=== PATIENT | female | born 1945 | race Caucasian/White ===

== ENCOUNTER 2017-05-07 13:09 | Inpatient (IN) | payer MEDICARE ==
[2017-05-07] MEDS ORDERED: Ondansetron HCl/PF 4 MG/2 ML Vial ONE ×3 (14:14→17:07)
[2017-05-07 14:50] LABS: Hematocrit 43.3 % (36.0-47.0); Mean Platelet Volume 6.9 fL (7.4-10.4); Red Blood Cell (RBC) Count 4.24 mill/uL (4.20-5.40)
[2017-05-07 14:55] LABS: Prothrombin Time 13.2 SEC (12.0-14.7)
[2017-05-07 14:56] LABS: PTT 22.3 SEC (22.9-36.1)
[2017-05-07 15:04] LABS: Lactic Acid - Sepsis 2.3 mmol/L (0.5-2.2)
[2017-05-07 15:12] LABS: ALT (SGPT) 14 U/L (8-55); AST (SGOT) 22 U/L (5-34); Alkaline Phosphatase 84 U/L (40-150); Anion Gap 17 mmol/L (10-20); BUN (Urea Nitrogen) 14 mg/dL (9.8-20.1); Bilirubin, Total 0.5 mg/dL (0.2-1.2); CK (CPK) 65 U/L (29-168); Calc. Creatinine Clearance 0 mL/min (70-130); Calcium 9.4 mg/dL (7.8-10.44); Carbon Dioxide 22 mmol/L (23-31); Chloride 102 mmol/L (98-107); Estimated GFR-MDRD 73; Globulin 3.6 g/dL (2.4-3.5); Lipase 17 U/L (8-78); Protein, Total 7.5 g/dL (6.0-8.3)
[2017-05-07 15:14] LABS: Troponin I 0.037 ng/mL (< 0.028)
--- NOTE | 2017-05-07 15:17 | CT ---
CT ABDOMEN NONCONTRAST CT PELVIS NONCONTRAST: (urolithiasis protocol) DATE: 05/07/17. HISTORY: A 72-year-old female with nausea, emesis, anorexia, and intermittent generalized abdominal pain. COMPARISON: Contrast-enhanced CT of 11/04/15. TECHNIQUE: IV injection of iodinated contrast media: none. Oral contrast media: none. FINDINGS: Other than for urolithiasis, the lack of IV and oral contrast limits the evaluation. Since the previous CT, there is a new generator implanted in the subcutaneous fat of the left flank, with electrical leads entering the posterior aspect of the spinal canal at the thoracolumbar junction , and ascending the thoracic spine, with distal portions outside of the field of view. There are fib rotic changes at the bilateral lung bases, including mild to moderate honeycombing, in addition to ar eas of hyperlucency. Approximately 20% of the stomach has herniated into the mediastinum. There are no renal, ureteral, or bladder calculi. No bladder wall thickening. Low bladder base within the pe lvic cavity (pelvic relaxation). Moderate to large volume of stool throughout the entire colon. No signs of acute colonic diverticulitis. No ascites or pneumoperitoneum identified. No hydronephrosis . Atherosclerotic calcification without aneurysm of abdominal aorta and splenic artery. Cholecystec billy clips. Mild dilation of the intrahepatic biliary tree, probably on a reservoir basis due to the status post cholecystectomy. Within the limitations of a noncontrast scan, no gross, obvious abnorm ality identified involving the liver, pancreas, adrenals, or spleen. Dextroscoliosis, with apex of c urvature at L1-2. Multilevel degenerative disk disease, worst at L4-5 and T12-L1. IMPRESSION: 1. Constipation, with stool mostly in the left hemicolon. 2. Status post cholecystectomy and hysterectomy. 3. Moderate-sized sliding hiatal hernia. 4. Dorsal column spinal cord stimulator. 5. No urolithiasis or obstructive uropathy. 6. No acute findings. 7. Chronic bibasilar pulmonary changes: emphysema and/or pulmonary fibrosis. REYES Gore POS: [facility]
[2017-05-07 15:22] LABS: Band 3 % (5-11); Macrocytosis SLIGHT = 6-15 cells (100X) (0-5/hpf); Neutrophil 73 % (42-75); Polychromasia SLIGHT = 2-3 cells (100X) (0-2/hpf)
--- NOTE | 2017-05-07 15:38 | RAD ---
PORTABLE AP CHEST XRAY: DATE: 05/07/17. HISTORY: Nausea and vomiting and weakness. Reduced p.o. intake. COMPARISON: 11/04/15. FINDINGS: Dorsal column stimulator leads now overlie the lower thoracic spine. Cardiac silhouette is at the up per limits of normal. There are increased interstitial markings seen throughout the lungs bilaterall y likely related to chronic interstitial fibrotic lung changes. No consolidation or pleural fluid is present. Osteopenia is present. Vascular calcification is seen in the thoracic aorta. IMPRESSION: 1. Chronic interstitial fibrotic lung changes without evidence of an acute cardiopulmonary process. 2. Osteopenia. POS: [facility]
[2017-05-07] MEDS ORDERED: Nitroglycerin 2% Ointment 1 INCH/1 GM Packet ONE (15:53)
[2017-05-07] MEDS ORDERED: fentaNYL 75 mcg/hour Patch TD SCH (17:15)
[2017-05-07 17:37] LABS: Amphetamine Not Detected (NotDetected); Methadone Not Detected (NotDetected); Methamphetamine Not Detected (NotDetected)
[2017-05-07] MEDS ORDERED: Sodium Chloride 0.9% 1,000 ML IV SCH (18:27)
[2017-05-07] MEDS ORDERED: Ondansetron HCl/PF 4 MG/2 ML Vial IVP PRN (18:27)
[2017-05-07] MEDS ORDERED: Ondansetron ODT 4 MG TAB SL PRN (18:27)
[2017-05-07 18:33] LABS: Troponin I 0.043 ng/mL (< 0.028)
[2017-05-07] MEDS: Dextrose 5% in Water 1,000 ML IV SCH (18:35)
[2017-05-07] MEDS: Promethazine HCl 12.5 MG in Sodium Chloride 0.9% 50 ML IVPB PRN (18:47)
[2017-05-07 20:00] LABS: Bilirubin Negative (Negative); Blood, Urine Negative (Negative); Glucose, Urine (Dipstick) Negative (Negative); Ketone, Urine Trace mg/dL (Negative); Nitrite Negative (Negative); Protein, Urine (Dipstick) 100 mg/dL (Neg-Trace); Urobilinogen 0.2 mg/dL (0.2-1.0)
[2017-05-07 20:01] LABS: Bacteria/HPF None Seen HPF (None Seen); Hyaline Casts/LPF 7-10 HYALINE CAST LPF (0-3 Hyaline); RBC/HPF 0-3 HPF (0-3); WBC/HPF 0-3 HPF (0-3)
[2017-05-07] MEDS: clonazePAM 0.5 MG TAB PO SCH (20:23)
[2017-05-07] MEDS: Pregabalin 75 MG CAP PO SCH (20:23)
[2017-05-07] MEDS: Pantoprazole 40 MG VIAL IVP SCH (20:25)
[2017-05-07 21:36] LABS: Troponin I 0.032 ng/mL (< 0.028)
--- NOTE | 2017-05-07 23:44 | HP ---
DATE OF ADMISSION: 05/07/2017 CHIEF COMPLAINT: Nausea and vomiting with some abdominal pain. HISTORY OF PRESENT ILLNESS: Apparently this is nothing new. It goes on for quite some time. We are talking about more than weeks when she has nausea and vomiting and stomach cramping approximately 2- 3 days out of 7 every week. Both daughters are in the room during my visit and both agreed that prob ably she takes too much medications on an empty stomach and this is causing the problem. She denied any fever or chills, but she feels quite warm all the time. She had a normal bowel movement. Her PC P is Dr. Darnell. She is FULL CODE. Her surrogate decision maker is Bony Mcpherson, one of her daught ers. PAST MEDICAL HISTORY: Positive for: 1. Fibromyalgia. 2. Bipolar disorder. 3. Chronic opiate use. 4. Chronic pain. 5. Dyslipidemia. 6. Gastroesophageal reflux disease. 7. Chronic respiratory failure with hypoxia. 8. Interstitial lung disease. 9. Moderate protein calorie malnutrition. PAST SURGICAL HISTORY: 1. Cholecystectomy. 2. Appendectomy. 3. Hysterectomy. 4. Ventral hernia repair. 5. Left middle finger surgery x3. 6. Bronchoscopy and PICC line placement in the past. ALLERGIES: VANCOMYCIN. SOCIAL HISTORY: She used to smoke. She quit 5 years ago. She uses vapor. Now, she denies any alco hol or illicit drug use. MEDICATIONS: We are going to obtain the full list of her medications and reconcile them. REVIEW OF SYSTEMS: Cardiovascular: Denies any chest pain. No palpitations. Respiratory: Denies any chronic cough or shortness of breath. Gastrointestinal: Positive for nausea and vomiting and abdominal cramping, nor mal stools. Genitourinary: Denies any frequency. Musculoskeletal: Positive for joint changes of b oth hands and positive whole body pain all over quite often. PHYSICAL EXAMINATION: VITAL SIGNS: Her blood pressure is 165/95, pulse is 98, respiratory rate is 98. She is on room air. Her temperature is within normal limits. Her blood pressure at the time of arrival was up to 184/1 13. Her pain was rated at 6 on a scale from 1-10. GENERAL: She looks tired and emaciated. She looks like a chronic pain syndrome patient. She looks dehydrated. HEENT: Her head is atraumatic, normocephalic. Her pupils are responding to light properly. Conjunc tivae pinkish. Oral mucosa is somewhat dry. NECK: Supple, no JVD. Thyroid is not palpable. LUNGS: Clear. HEART: S1, S2 normal. No S3, no S4. ABDOMEN: Soft. It is mildly tender all over. No guarding, no masses. EXTREMITIES: No clubbing, cyanosis or edema. She has decent pulses on both tibialis posterior and d orsalis pedis arteries, similar bilaterally. NEUROLOGIC: She follows my commands. She does not have any motor or sensory deficits. Cranial nerv es are intact. LABORATORY AND X-RAY FINDINGS: Showed normal CBC except for MCV which is 102. Her chemistry showed sodium of 136, potassium 4.5, chloride 102, CO2 of 22, glucose 111. Lactic acid is 2.3, globulin is 3.6, troponin I is 0.037. BNP 728.8, lipase 17. Chest x-ray personally reviewed by me showed some c hronic interstitial fibrotic changes in lower parts of both lungs. A CT of the abdomen and pelvis wa s done and it was personally reviewed by me and it showed no acute findings, constipation, mostly in the left hemicolon and hiatal hernia. IMPRESSION: 1. Nausea and vomiting with abdominal cramps, which is a chronic problem up to the point that the gricelda navarro brought her in to be evaluated and unclear etiology. This could be related to her autoimmune di sease or simple as taking medications on an empty stomach. That is what she does. We will further i nvestigate the etiology of the problem. 2. Bipolar disorder. 3. Depression. 4. Anxiety. 5. Restless leg syndrome. 6. Rheumatoid arthritis. 7. Gout. 8. Osteoporosis. 9. Profuse sweating which is unclear etiology, maybe medications withdrawal since she has not been a ble to keep much down in the last couple of days. 10. History of peritonitis and bowel obstruction. 11. Chronic pain syndrome. 12. Polypharmacy, patient on multiple medications. PLAN: Full admission. Condition is fair. Activity: Bed rest and bathroom privileges. IV D5 water at 75 mL per hour. We will reconcile her medications. I will give her 1 patch of fentanyl 75 mcg r ight now since we do not know how old the patch is she has on her. I am going to check her CRP and I will continue her antiemetics. We will get Dr. Murguia for GI evaluation and I will keep her on proton pump inhibitor IV and Protonix 40 mg q.12 hours.
[2017-05-07] MEDS: Ondansetron HCl/PF 4 MG/2 ML Vial IVP PRN (23:49)
[2017-05-08] MEDS: hydrALAZINE 20 MG/ML VIAL SLOW IVP PRN ×2 (00:34→08:40)
[2017-05-08] MEDS: Promethazine HCl 12.5 MG in Sodium Chloride 0.9% 50 ML IVPB PRN (02:56)
[2017-05-08 06:04] LABS: #Basophils 0.1 thou/uL (0.0-0.2); #Eosinphils 0.1 thou/uL (0.0-0.7); #Monocytes 0.8 thou/uL (0.11-0.59); #Neutrophils 7.6 thou/uL (1.40-6.50); %Basophils 0.6 % (0.0-1.0); %Eosinophils 1.3 % (0.0-10.0); %Monocytes 7.6 % (0.0-10.0); Hematocrit 42.1 % (36.0-47.0); Mean Platelet Volume 6.9 fL (7.4-10.4); Red Blood Cell (RBC) Count 4.15 mill/uL (4.20-5.40); White Blood Cell (WBC) Count 10.7 thou/uL (4.8-10.8)
[2017-05-08 06:14] LABS: Anion Gap 14 mmol/L (10-20); BUN (Urea Nitrogen) 11 mg/dL (9.8-20.1); Calc. Creatinine Clearance 52 mL/min (70-130); Calcium 9.3 mg/dL (7.8-10.44); Carbon Dioxide 25 mmol/L (23-31); Chloride 98 mmol/L (98-107); Estimated GFR-MDRD 68
[2017-05-08] MEDS: Ondansetron HCl/PF 4 MG/2 ML Vial IVP PRN (06:16)
[2017-05-08] MEDS: Pregabalin 75 MG CAP PO SCH ×2 (08:39→20:32)
[2017-05-08] MEDS: Pantoprazole 40 MG VIAL IVP SCH ×2 (08:39→20:32)
[2017-05-08] MEDS: Citalopram 20 MG TAB PO SCH (08:39)
[2017-05-08] MEDS: clonazePAM 0.5 MG TAB PO SCH ×2 (08:40→20:32)
[2017-05-08] MEDS: Dextrose 5% in Water 1,000 ML IV SCH (08:41)
[2017-05-08] MEDS: Promethazine HCl 12.5 MG in Sodium Chloride 0.9% 100 ML IVPB PRN ×2 (11:18→20:48)
[2017-05-08] MEDS ORDERED: Lidocaine 2% Viscous Solution 20 ML, Aluminum & Magnesium Hydroxide 30 ML, Donnatal Eli... SSW SCH ×3 (12:30)
[2017-05-08] MEDS ORDERED: Lorazepam 2 MG/ML VIAL SLOW IVP SCH (12:45)
[2017-05-08] MEDS ORDERED: D5 0.9% NS w/ 20 mEq KCl 1,000 ML IV SCH (12:45)
[2017-05-08] MEDS ORDERED: hydrALAZINE 20 MG/ML VIAL SLOW IVP PRN (12:48)
--- NOTE | 2017-05-08 13:15 | PRG ---
DATE OF SERVICE: 05/08/2017 SUBJECTIVE: The patient was seen and examined at the bedside. She vomited this morning. She had so me rest last night, but she developed migraine headache this morning. Apparently, she has a history of migraines on and off, did not have any migraine for several weeks. OBJECTIVE: VITAL SIGNS: Blood pressure is 171/83, temperature is 98.4, pulse is 99, respiratory rate is 20, O2 saturation 98% on room air. She has a towel around her head and on her eyes, so this part is not exa mined since she is photophobic. LUNGS: Clear. HEART: S1, S2 normal, no S3, no S4. ABDOMEN: Soft and nontender. Bowel sounds are present. EXTREMITIES: No clubbing, cyanosis or edema. NEUROLOGIC: She is following my commands. She is alert and oriented x3. There is no any motor defi cits. LABORATORY DATA: White count of 7.7, hemoglobin 13.5, hematocrit 42.1, and platelet count is 289,000 . Sodium of 133, potassium 4.1, chloride 98, CO2 of 25, BUN 11, creatinine 0.82, glucose is 141, john cium 9.3. Lactic acid was down yesterday to 1.7. Two sets of the troponins came back at 0.043 and 0 .032 and C-reactive protein was 0.87. MICROBIOLOGY: None. IMAGES: None. IMPRESSION: 1. Intractable nausea and vomiting, most likely related to her medications she is taking. She is on multiple medications at home. She takes them on empty stomach, although other etiologies are not ru led out. Her automotive leasing sales representative, Dr. Murguia, is coming to see her and evaluate her for possible scopin g. She might have a gastrointestinal etiology as source of her nausea and vomiting. Apparently, she has those episodes lasting 2-3 days almost every week and she gets vomiting too along with her migra ine headaches. 2. Bipolar disorder. 3. Depression. 4. Migraine headaches. 5. Anxiety. 6. Restless leg syndrome. 7. Rheumatoid arthritis. 8. Gout. 9. Osteoporosis. 10. Profuse sweating, which has improved significantly since yesterday, most likely related to serot onin affect. 11. History of peritonitis and bowel obstruction. 12. Chronic pain syndrome. The patient has a generator, which is implanted in the subcutaneous fat of the left flank and according to the CT results, electrical leads entered the posterior aspect of t he spinal canal at the thoracolumbar junction and ascending the thoracic spine. PLAN: So, plan is to continue supportive care and give her one dose of Toradol 30 mg IV for the head ache. Continue IV fluids D5 half normal saline at 125 mL which is increased from 75 she was on befor e. Also, we are going to wait until Dr. Murguia sees her for GI evaluation for possible scoping. If sh yana starts vomiting more, we will have to put down the NG tube and slow suctioning her stomach contents . For now, we will continue the current regimen and will continue her PPI 40 mg q.12 h. and antiemet ics and benzodiazepines with one of her medication, which is citalopram whenever she can start taking them. At this point, I am going to start her on ice chips and advance the diet as tolerated.
[2017-05-08] MEDS: D5 0.9% NS w/ 20 mEq KCl 1,000 ML IV SCH (13:16)
--- NOTE | 2017-05-08 15:55 | CON ---
DATE OF CONSULTATION: 05/08/2017 HISTORY OF PRESENT ILLNESS: The patient is a 72-year-old female patient of Dr. Sam who presented to the hospital with persistent nausea and vomiting. Reviewing previous records by Dr. Regan, it looks like possibly the last time she was seen by Dr. Sam was 11/2014. At that time, liseth dejesus was a cyst on the pancreas, chronic diarrhea, nausea, vomiting, and weight loss. At that time, her weight had gone from 116-124. Previous EGD in 06/2011 showed normal exam. Colonoscopy in 06/26 12 showed a right-sided stricture that was nonobstructive. Gastric and small bowel biopsies were audrey en and were normal. Biopsies in 2006 of the stricture were unremarkable showing active colitis with extensive ulceration. The patient reports that she has nausea and vomiting only when she has a heada mague. However, this is not supported by family members. She denies any extensive weight loss. She r eports she does not have much of an appetite. She recently had a spinal cord stimulator placed and s he has been tapering off her oral medications as is successful in stopping the hydrocodone. She stil l is on a fentanyl patch. PAST MEDICAL HISTORY: Significant for fibromyalgia, bipolar disorder, chronic migraine headaches, ch ronic back pain normal with a spinal cord stimulator, hyperlipidemia, gastroesophageal reflux, and in terstitial lung disease. PAST SURGICAL HISTORY: Includes cholecystectomy, appendectomy, hysterectomy, ventral hernia repair, which was complicated and required multiple surgeries, left middle finger surgery, and bronchoscopy i n the past. ALLERGIES: VANCOMYCIN. SOCIAL HISTORY: She canales, but does not smoke. No alcohol. MEDICATIONS: Include fentanyl patch 75 mcg every 3 days, citalopram 40 mg p.o. daily, Ceftin 250 mg p.o. q.12 hours, Lipitor 20 mg p.o. daily, tizanidine 4 mg p.o. t.i.d. p.r.n., ropinirole 1 mg p.o. d aily, clonazepam 0.5 mg p.o. b.i.d., buspirone 7.5 mg p.o. b.i.d., Ventolin inhaler p.r.n., Effexor 2 25 mg p.o. daily, Phenergan 25 mg p.o. q.8 hours p.r.n., Lyrica 75 mg p.o. b.i.d., MiraLax 17 grams p .o. daily, DuoNeb p.r.n., Pepcid 20 mg p.o. q.12 hours p.r.n., Premarin 0.2 mg p.o. daily, Cymbalta 2 0 mg p.o. daily, and Celebrex 100 mg p.o. daily. FAMILY HISTORY: Negative for GI or liver disease. REVIEW OF SYSTEMS: CONSTITUTIONAL: No fever or chills. Positive for sweats. Negative for weight l oss. EYES: No blurred vision or double vision. ENT: No sore throat or earaches. CARDIOVASCULAR: No chest pain or palpitation. PULMONARY: No shortness of breath, cough or wheezing. GASTROINTESTI NAL: See above. : No hematuria or dysuria. MUSCULOSKELETAL: Positive for generalized weakness. SKIN: No rashes. NEUROLOGIC: No numbness or seizure activity. PHYSICAL EXAMINATION: GENERAL: Shows a thin female covering her eyes with a towel. VITAL SIGNS: Temperature 98.4, pulse 99, respiratory rate 20, blood pressure 171/83. HEENT: Unremarkable. NECK: Supple. CHEST: Clear. CARDIOVASCULAR: Regular rate and rhythm. ABDOMEN: Soft and nontender without organomegaly or masses. Bowel sounds are present and normoactiv e. RECTAL: Deferred. EXTREMITIES: Normal. NEUROLOGIC: Nonfocal. LABORATORY DATA AND IMAGING: Shows an admission hemoglobin 13.9, hematocrit 43.3. White blood cell count of 10.0, MCV is 102. PT is 13.2 with an INR of 1.0. Chemistry panel showed CO2 22, glucose 11 1, globulin 36, BMP at 728. Urinalysis is essentially normal. Toxicology is undetected. CT abdomen and pelvis shows constipation with stool mostly in the left hemicolon, status post cholecystectomy a nd hysterectomy, moderate sized hiatal hernia, distal column spinal cord stimulator and emphysematous changes. ASSESSMENT: 1. Persistent nausea and vomiting - this may be related to the patient's migraine headaches versus n arcotic use versus medications. 2. Chronic migraine headaches. 3. Chronic lower back pain on chronic narcotics. 4. History of right colon stricture. 5. Chronic obstructive pulmonary disease. RECOMMENDATIONS: EGD in a.m.
[2017-05-09] MEDS: D5 0.9% NS w/ 20 mEq KCl 1,000 ML IV SCH ×3 (02:56→21:44)
[2017-05-09] MEDS: Ondansetron HCl/PF 4 MG/2 ML Vial IVP PRN (04:20)
[2017-05-09] MEDS: Promethazine HCl 12.5 MG in Sodium Chloride 0.9% 100 ML IVPB PRN ×2 (06:42→21:51)
[2017-05-09 07:57] LABS: #Eosinphils 0.3 thou/uL (0.0-0.7); #Lymphocytes 2.2 thou/uL (1.20-3.40); #Monocytes 0.8 thou/uL (0.11-0.59); %Basophils 0.2 % (0.0-1.0); %Eosinophils 3.3 % (0.0-10.0); %Lymphocytes 26.8 % (21.0-51.0); %Monocytes 9.3 % (0.0-10.0); Hematocrit 37.1 % (36.0-47.0); Mean Platelet Volume 7.1 fL (7.4-10.4); Red Blood Cell (RBC) Count 3.59 mill/uL (4.20-5.40); White Blood Cell (WBC) Count 8.3 thou/uL (4.8-10.8)
[2017-05-09 08:23] LABS: ALT (SGPT) 11 U/L (8-55); AST (SGOT) 19 U/L (5-34); Alkaline Phosphatase 62 U/L (40-150); Anion Gap 13 mmol/L (10-20); BUN (Urea Nitrogen) 13 mg/dL (9.8-20.1); Bilirubin, Total 0.4 mg/dL (0.2-1.2); Calc. Creatinine Clearance 56 mL/min (70-130); Calcium 8.5 mg/dL (7.8-10.44); Carbon Dioxide 23 mmol/L (23-31); Chloride 107 mmol/L (98-107); Estimated GFR-MDRD 68; Globulin 2.7 g/dL (2.4-3.5)
--- NOTE | 2017-05-09 10:53 | OP ---
PREOPERATIVE DIAGNOSES: Persistent nausea and vomiting. DESCRIPTION OF PROCEDURE: After informed consent was obtained, the patient was placed in the left la teral decubitus position. Anesthesia was administered per the Anesthesia Department. Forward-viewin g endoscope was inserted into the esophagus under direct visualization with ease and passed to the se cond portion of the duodenum with ease. Second portion of the duodenum and duodenal bulb were normal . The pylorus, antrum, body, fundus, and cardia were normal except for 2 benign appearing ulcers in the gastric antrum. These had clean white bases, no visible vessels or bleeding. Biopsies were take n from the ulcer edge. Retroflexion in the stomach was normal except for large hiatal hernia. The G E junction appeared narrow. A 54-[place] Grande dilator was passed with some mild to moderate resist ance. Reinsertion of the endoscope showed some mild post-dilatation bleeding and some mucosal tears at the GE junction. ASSESSMENT: 1. Two antral ulcers - status post biopsy. 2. Esophageal stricture - status post Grande dilatation. 3. Large hiatal hernia. RECOMMENDATIONS: 1. Continue PPI. 2. Await histopathology. 3. Resume diet.
[2017-05-09] MEDS: clonazePAM 0.5 MG TAB PO SCH ×2 (11:24→21:43)
[2017-05-09] MEDS: Citalopram 20 MG TAB PO SCH (11:24)
[2017-05-09] MEDS: Pregabalin 75 MG CAP PO SCH ×2 (11:24→21:42)
[2017-05-09] MEDS: Pantoprazole 40 MG VIAL IVP SCH ×2 (11:25→21:43)
--- NOTE | 2017-05-09 14:30 | PRG ---
DATE OF SERVICE: 05/09/2017 SUBJECTIVE: The patient is seen and examined at bedside. She just came back from the procedure room where she had an EGD done by Dr. Murguia. She feels significantly better. She had a big bowel movemen t today. She did not have any vomiting and her headache is almost completely gone. OBJECTIVE: VITAL SIGNS: Blood pressure is 134/63, pulse is 83, temperature is 98.1, respirations 17, and O2 sat uration is 96% on 2 liters by nasal cannula. HEENT: Her head is atraumatic, normocephalic. Pupils are responding to light properly. Oral mucosa is slightly dry. NECK: Supple. LUNGS: Clear, although breath sounds are slightly diminished at both bases. No wheezing. HEART: S1, S2 normal, no S3, no S4, systolic murmur at the left sternal border, mostly audible, 2/6. ABDOMEN: Soft, nontender, nondistended. Bowel sounds are present, no organomegaly. EXTREMITIES: No clubbing, cyanosis or edema. NEUROLOGIC: She is alert and oriented x4. There is no any sensory or motor deficit present. Crania l nerves are intact. LABORATORY DATA: Showed a white count of 8.3, hemoglobin 11.8, hematocrit 37.1, platelet count is 22 0. Chemistries within normal limits. Serum total protein 6.0. IMPRESSION: 1. Two antral ulcers, status post biopsy. 2. Esophageal stricture, status post Grande dilatation. 3. Large hiatal hernia. 4. Bipolar disorder. 5. Depression per history. 6. Migraine headaches, resolved. 7. Anxiety per history. 8. Restless leg syndrome. 9. Rheumatoid arthritis. 10. Gout. 11. Osteoporosis. 12. Profuse sweating, resolved. 13. History of peritonitis and bowel obstruction. 14. Chronic pain syndrome. The patient has a generator which is implanted in the subcutaneous fat o f the left flank with electrical leads entering the posterior aspect of the spinal canal at the thora columbar junction. PLAN: To continue her PPI and decrease the rate on her IV fluids to 50 mL per hour. We are going to try to feed her today to see how she tolerates food after the procedure. The patient is placed back on a very limited number of medications she was taking at home, but I believe that she was overmedic ated and she does not need all those meds. She should be able to go home in the next 24 hours.
[2017-05-09] MEDS ORDERED: Propofol 200 MG/20 ML VIAL ONE (15:38)
[2017-05-10] MEDS: Pantoprazole 40 MG VIAL IVP SCH ×2 (08:49→21:13)
[2017-05-10] MEDS: Pregabalin 75 MG CAP PO SCH ×2 (08:50→21:13)
[2017-05-10] MEDS: Citalopram 20 MG TAB PO SCH (08:50)
[2017-05-10] MEDS: clonazePAM 0.5 MG TAB PO SCH ×2 (08:50→21:13)
[2017-05-10] MEDS ORDERED: fentaNYL 75 mcg/hour Patch TD SCH (12:15)
[2017-05-10] MEDS: D5 0.9% NS w/ 20 mEq KCl 1,000 ML IV SCH (18:40)
--- NOTE | 2017-05-10 22:13 | PDOC.PN ---
- Subjective Encounter Start Date: 05/10/17 Encounter Start Time: 21:40 Subjective: f/u for N/V and abd pain s/p EGD showing 2 antral ulcers and esophageal -: stricture post dilation. Receiving Protonix 40mg q12h and Phenergan. -: No new complaints. - Objective Resuscitation Status: Resuscitation Status FULL:Full Resuscitation MAR Reviewed: Yes Vital Signs & Weight: Vital Signs (12 hours) Temp Pulse Resp BP Pulse Ox 05/10/17 15:59 99.9 F H 85 17 136/69 96 05/10/17 12:00 98.9 F 87 17 141/77 H 96 Weight Weight 127 lb 1.6 oz I&O: 05/09/17 05/10/17 05/11/17 06:59 06:59 06:59 Intake Total 2110 1355 Output Total 1340 450 Balance 770 905 Result Diagrams: 05/09/17 07:43 05/09/17 07:43 Radiology Reviewed by me: Yes (EGD - 2 antral ulcers, large hiatal hernia, esophageal stricture) EKG Reviewed by me: Yes (Tele - SR ) Phys Exam - Physical Examination Constitutional: NAD HEENT: PERRLA, oral pharynx no lesions Neck: no JVD, supple Respiratory: no wheezing, clear to auscultation bilateral II/ TOYIN LUSB Cardiovascular: RRR Gastrointestinal: soft, non-tender, no distention, positive bowel sounds Musculoskeletal: no edema, pulses present Neurological: normal sensation, moves all 4 limbs Psychiatric: A&O x 3 Skin: normal turgor, cap refill <2 seconds Dx/Plan (1) Antral ulcer Code(s): K25.9 - GASTRIC ULCER, UNSP ACUTE OR CHRONIC, W/O HEMOR OR PERF Status: Acute Qualifiers: Gastric ulcer chronicity: chronic Qualified Code(s): K25.7 - Chronic gastric ulcer without hemorrhage or perforation Comment: Continue Protonix 40mg BID (2) Esophageal stricture Code(s): K22.2 - ESOPHAGEAL OBSTRUCTION Status: Acute Comment: s/p esophageal dilation (3) Polypharmacy Code(s): Z79.899 - OTHER C[employer] ENGINEER (CURRENT) DRUG THERAPY Status: Chronic Comment: Limit pain and psychotropic medications (4) Chronic pain syndrome Code(s): G89.4 - CHRONIC PAIN SYNDROME Status: Chronic (5) Hiatal hernia Code(s): K44.9 - DIAPHRAGMATIC HERNIA WITHOUT OBSTRUCTION OR GANGRENE Status: Chronic (6) Physical deconditioning Code(s): R53.81 - OTHER MALAISE Status: Chronic Comment: ? PT with HH - Plan social group worker, out of bed/ambulate, DVT proph w/SCDs Stable overall -: Continue Protonix 40mg BID -: Restart Duragesic patch 75mcg q72h, chronic -: Bowel regimen -: PT for functional assessment * Likely home in 24h
--- NOTE | 2017-05-11 06:19 | PRG ---
DATE OF SERVICE: 05/10/2017 SUBJECTIVE: Ms. Mercer is eating and drinking some Boost. She feels that she is having vomiting mo re, and she feels that the headaches bring on vomiting, it is not unilateral, they are bitemporal, bu t they did have visual aura with them. She has had these for years. She states she has tried Imitre x, narcotic pain medicines that work the best for now. She did have some Excedrin PM and some Phener frederic suppositories. OBJECTIVE: VITAL SIGNS: Temperature is 99 to 98, pulse 85, blood pressure 136/69. ABDOMEN: Soft, nontender. LABORATORY DATA: None today. ASSESSMENT: 1. Nausea and vomiting, persistent seem to be related to a headache at first, but then the headache got better, the vomiting did not, now she feels better all over. 2. EGD revealed two antral ulcers and esophageal stricture that was dilated. These are likely NSAID related. She takes NSAIDs for headaches. Biopsy taken for H. pylori, pending. RECOMMENDATIONS: She can go home on a PPI. She should wean off the NSAIDs, she is going to use them intermittently. She should stay on the PPI for prophylaxis forever. We will see her back in the of [facility] in a week or two to go over biopsy results to see how she is doing.
[2017-05-11] MEDS: Pregabalin 75 MG CAP PO SCH (07:04)
[2017-05-11] MEDS: clonazePAM 0.5 MG TAB PO SCH (07:05)
[2017-05-11] MEDS: Citalopram 20 MG TAB PO SCH (09:03)
[2017-05-11] MEDS: Pantoprazole 40 MG VIAL IVP SCH (09:04)
[2017-05-11 12:36] VITALS: BP 146/77; TEMP 97.5
--- NOTE | 2017-05-11 17:29 | DIS ---
DATE OF ADMISSION: 05/07/2017 DATE OF DISCHARGE: 05/11/2017 DISCHARGE DIAGNOSES: 1. Gastric ulcers x2 without hemorrhage or perforation. 2. Esophageal stricture, status post esophageal dilation. 3. Polypharmacy. 4. Chronic pain syndrome. 5. Nausea and vomiting, likely iatrogenic. 6. Headaches, questionable tension component. 7. Hiatal hernia. 8. Deconditioning. 9. Chronic opiate use. 10. Rheumatoid arthritis. CONSULTATIONS: Dr. Sam and Dr. Murguia with GI service. PERTINENT LAB AND X-RAY FINDINGS: BNP 729. CRP 0.87. Lipase 17. LFTs within normal limits. CBC s howed a hemoglobin ranging between 11.8-13.9, MCV ranged between 102-103. Urine drug screen on 05/07 negative. Portable chest x-ray dated 05/07/2017 showed chronic interstitial fibrotic changes. CT of the abdomen and pelvis dated 05/07/2017 showed stool on the left hemicolon. Moderate size sli ding hiatal hernia. Dorsal column spinal cord stimulator. No acute findings noted. EGD dated 05/09 showed 2 antral ulcers status post biopsy. Esophageal stricture status post Grande dilation. Large hiatal hernia. HOSPITAL COURSE: Patient was initially admitted to the telemetry unit after presenting with nausea, vomiting, and abdominal pain. The patient underwent GI evaluation including EGD showing 2 gastric ul cers treated with IV Protonix during the hospital course. The patient also received intravenous flui ds as well as antiemetics with associated nausea and vomiting with abdominal cramps. The patient's s ymptomatology and presentation is likely due to a component of polypharmacy given patient's multitude of narcotics and psychotropic medications. The patient received general supportive measures with ov erall improvement in nausea and vomiting. The patient did experience residual headache with recommen dations for supportive measures and current medical therapy for symptomatic relief. Likely multifact orial headaches including tension component. Overall, the patient remained clinically stable through the hospital course, tolerating regular oral intake, and voiding appropriately. The patient is stab le and ready for discharge on 05/11/2017. DISCHARGE MEDICATIONS: 1. Protonix 40 mg one tablet p.o. b.i.d. 2. Lipitor 20 mg one tablet p.o. daily. 3. BuSpar 7.5 mg p.o. b.i.d. 4. Celebrex 100 mg p.o. b.i.d. 5. Citalopram 40 mg p.o. daily. 6. Klonopin 0.5 mg p.o. b.i.d. 7. Cymbalta 20 mg p.o. daily. 8. Premarin 0.3 mg one tablet p.o. daily. 9. Duragesic patch 75 mcg transdermally q.72 hours. 10. DuoNeb 3 mL nebulized q.i.d. p.r.n. 11. MiraLax 17 grams p.o. daily. 12. Lyrica 75 mg p.o. b.i.d. 13. Phenergan 25 mg p.o. q.8 hours p.r.n. 14. Ropinirole 1 mg p.o. daily. 15. Tizanidine 4 mg p.o. t.i.d. p.r.n. 16. Venlafaxine ER 225 mg p.o. daily. 17. Ventolin HFA two puffs inhaled q.6 hours p.r.n. FOLLOWUP: Patient will follow up with her primary care provider, Dr. Shiraz Darnell within 7 days of d ischarge. CONDITION ON DISCHARGE: Fair. ACTIVITY: Ad sage. SPECIAL INSTRUCTIONS: Patient will receive [facility] on discharge. DIET: Heart healthy. CODE STATUS: FULL. DISPOSITION: Home with [facility] on 05/11/2017. Total time preparing and coordinating discharge is 32 minutes.
== END 2017-05-11 14:58 | disposition home or self-care (01) | DRG 392 ==
LOC: ERS 13:09 → 2NO 16:00
PROVIDERS: ADMIT Internal Medicine; ATTEND Internal Medicine
PROC: 0DB78ZX Excision of Stomach, Pylorus, Via Natural or Artificial Opening Endoscopic, Diagnostic (ICD-10-PCS; principal; 2017-05-10)
PROC: 0D758ZZ Dilation of Esophagus, Via Natural or Artificial Opening Endoscopic (ICD-10-PCS; 2017-05-10)
DX: R11.2 Nausea with vomiting, unspecified (principal); J96.11 Chronic respiratory failure with hypoxia; J44.9 Chronic obstructive pulmonary disease, unspecified; K22.2 Esophageal obstruction; M06.9 Rheumatoid arthritis, unspecified; K25.9 Gastric ulcer, unspecified as acute or chronic, without hemorrhage or perforation; E78.5 Hyperlipidemia, unspecified; M10.9 Gout, unspecified; G25.81 Restless legs syndrome; M81.0 Age-related osteoporosis without current pathological fracture; G89.4 Chronic pain syndrome; G43.909 Migraine, unspecified, not intractable, without status migrainosus; K44.9 Diaphragmatic hernia without obstruction or gangrene; M54.5 Low back pain; F31.9 Bipolar disorder, unspecified; F41.9 Anxiety disorder, unspecified; R61 Generalized hyperhidrosis; R10.9 Unspecified abdominal pain; Z88.1 Allergy status to other antibiotic agents; Z87.891 Personal history of nicotine dependence; Z79.891 Long term (current) use of opiate analgesic; Z79.899 Other long term (current) drug therapy; Z79.1 Long term (current) use of non-steroidal anti-inflammatories (NSAID); T39.395A Adverse effect of other nonsteroidal anti-inflammatory drugs [NSAID], initial encounter; T40.605A Adverse effect of unspecified narcotics, initial encounter; T43.505A Adverse effect of unspecified antipsychotics and neuroleptics, initial encounter
CPT/HCPCS: 36415; 71010; 74176; 80048; 80053; 80306; 81001; 82550; 82553; 83605; 83690; 83880; 84484; 85025; 85610; 85730; 86140; 88305; 88312; 93005; 96374; 96376; A4216; C9113; J0360; J2060; J2405; J2550; J2704; J7050